=== PATIENT | male | born 1980 | race Caucasian/White ===

== ENCOUNTER 2021-02-02 07:44 | Outpatient (RCR) | payer BC, SELFPAY ==
[2021-02-02 10:21] VITALS: BP 151/89; PULSE 81; TEMP 36.2; O2SAT 96
[2021-02-02] MEDS: diphenhydrAMINE HCl CAP 25 MG CAPSULE PO (10:28)
[2021-02-02] MEDS: ACETAMINOPHEN 325 MG TABLET 650 MG PO (10:28)
[2021-02-02] MEDS: FAMOTIDINE 20 MG TABLET PO (10:28)
--- NOTE | 2021-02-03 10:43 | PC.NURSE ---
Patient states that he is feeling better after his monoclonal antibody infusion.
== END 2021-02-02 17:00 ==
LOC: AMCINF 07:44
PROVIDERS: Visit Provider Internal Medicine Hematology & Oncology
DX: U07.1 COVID-19 (principal); I10 Essential (primary) hypertension
CPT/HCPCS: A9270; M0245; Q0245